=== PATIENT | male | born 1950 | race Caucasian/White ===

== ENCOUNTER 2024-08-09 18:17 | Emergency (ER) | payer OTHER ==
[~2024-08-09] VITALS: Ht 175.3 cm; Wt 81.7 kg
== END 2024-08-09 20:03 | disposition home or self-care (01) ==
LOC: ER 18:17
DX: S01.01XA Laceration without foreign body of scalp, initial encounter (principal); W21.04XA Struck by golf ball, initial encounter
CPT/HCPCS: 12001; 70450; 99283-25